=== PATIENT | female | born 1990 | race American Indian/Alaskan Native ===

== ENCOUNTER 2018-03-29 00:38 | Emergency (ER) | payer BC ==
[2018-03-29 01:55] LABS: Basophils # (Auto) 0.1 K/mm3 (0.0-0.1); Basophils % (Auto) 0.8 % (0.0-1.8); Eosinophils # (Auto) 0.1 K/mm3 (0.0-0.4); Eosinophils % (Auto) 0.9 % (0.0-4.3); Hematocrit 40.9 % (30.3-42.9); Hemoglobin 14.1 gm/dl (10.1-14.3); Lymphocytes # (Auto) 1.8 K/mm3 (1.2-5.4); Lymphocytes % (Auto) 23.9 % (13.4-35.0); Mean Corpuscular HGB Conc 34 % (30-34); Mean Corpuscular Hemoglobin 32 pg (28-32); Mean Corpuscular Volume 92 fl (79-97); Monocytes # (Auto) 0.5 K/mm3 (0.0-0.8); Monocytes % (Auto) 6.8 % (0.0-7.3); Platelet Count 414 K/mm3 (140-440); Red Blood Count 4.45 M/mm3 (3.65-5.03); Red Cell Distribution Width 12.7 % (13.2-15.2)
[2018-03-29 01:57] LABS: BUN/Creatinine Ratio 18; Blood Urea Nitrogen 16 mg/dL (7-17); Calcium 9.4 mg/dL (8.4-10.2); Hemolysis Index 6
[2018-03-29 02:20] LABS: Bilirubin,Urine NEG (Negative); Blood,Urine NEG (Negative); Color,Urine Yellow (Yellow); Mucus,Urine FEW /HPF
[2018-03-29 02:30] LABS: Amphetamine Screen,Urine PRESUMPTIVE NEGATIVE; Benzodiazepines Screen,Urine PRESUMPTIVE NEGATIVE; Cannabinoid Screen,Urine PRESUMPTIVE NEGATIVE; Cocaine Screen,Urine PRESUMPTIVE NEGATIVE; Methadone Screen,Urine PRESUMPTIVE NEGATIVE; Opiate Screen,Urine PRESUMPTIVE NEGATIVE
--- NOTE | 2018-03-29 03:46 | Emergency Department Report ---
ED Psych HPI - General Chief Complaint: Psych Stated Complaint: NOT FEELING MENTALLY STABLE Time Seen by Provider: 03/29/18 03:42 Source: patient Mode of arrival: Ambulatory - History of Present Illness Initial Comments: 28-year-old woman with chronic depression, reports significant interpersonal difficulties with her significant other, reporting that he has a history of alcohol abuse, with difficulties over drinking, but otherwise patient has felt that he has been a stabilizing influence, but became significantly upset at not being able to localize patient today, did not know where he was, became significantly distraught, and felt something snap, with significant worsening of her depression, and feeling acutely suicidal. She expresses with cutting behavior, primarily on her left forearm, which should not cause any significant bleeding, but she remained distraught, contacted local police, who brought her here for psychiatric evaluation. She's had no prior history of suicidal activity, but she has felt chronically depressed, although she has not had treatment for this. She still feels unstable, still feels like she is suicidal , does not feel safe if she were released on her own care. Gen. health is good otherwise, she takes no routine medications, has no substance abuse issues of her own, takes no routine medications, and has no acute allergies. - Related Data Home Medications Medication Instructions Recorded Confirmed Last Taken No Known Home Medications [No 03/29/18 03/29/18 Unknown Reported Home Medications] Allergies Allergy/AdvReac Type Severity Reaction Status Date / Time No Known Allergies Allergy Unverified 03/29/18 00:45 ED Review of Systems ROS: Stated complaint: NOT FEELING MENTALLY STABLE Other details as noted in HPI Comment: All other systems reviewed and negative Constitutional: denies: chills, fever Eyes: denies: eye pain, eye discharge, vision change ENT: denies: ear pain, throat pain Respiratory: denies: cough, shortness of breath, wheezing Cardiovascular: denies: chest pain, palpitations Endocrine: no symptoms reported Gastrointestinal: denies: abdominal pain, nausea, diarrhea Genitourinary: denies: urgency, dysuria, discharge Musculoskeletal: denies: back pain, joint swelling, arthralgia Skin: denies: rash, lesions Neurological: denies: headache, weakness, paresthesias Psychiatric: depression, suicidal thoughts. denies: auditory hallucinations, visual hallucinations, homicidal thoughts Hematological/Lymphatic: denies: easy bleeding, easy bruising ED Past Medical Hx - Past Medical History Previous Medical History?: No - Surgical History Past Surgical History?: No - Social History Smoking Status: Never Smoker - Medications Home Medications: Home Medications Medication Instructions Recorded Confirmed Last Taken Type No Known Home Medications [No 03/29/18 03/29/18 Unknown History Reported Home Medications] ED Physical Exam - General Limitations: No Limitations General appearance: alert, in no apparent distress, anxious - Head Head exam: Present: atraumatic, normocephalic - Eye Eye exam: Present: normal appearance, PERRL, EOMI - ENT ENT exam: Present: mucous membranes moist - Neck Neck exam: Present: normal inspection, full ROM. Absent: tenderness - Respiratory Respiratory exam: Present: normal lung sounds bilaterally. Absent: respiratory distress, wheezes, rales, rhonchi - Cardiovascular Cardiovascular Exam: Present: regular rate, normal rhythm. Absent: systolic murmur, diastolic murmur, rubs, gallop - GI/Abdominal GI/Abdominal exam: Present: soft, normal bowel sounds - Rectal Rectal exam: Present: deferred - Extremities Exam Extremities exam: Present: other (minor superficial skin laceration, left forearm, nonpenetrating into dermal area, none require suture) - Back Exam Back exam: Present: normal inspection - Neurological Exam Neurological exam: Present: alert, oriented X3 - Psychiatric Psychiatric exam: Present: normal affect, normal mood - Skin Skin exam: Present: warm, dry, intact, normal color. Absent: rash ED Course Vital Signs 03/29/18 00:47 Temperature 37.3 C Pulse Rate 119 H Respiratory 20 Rate Blood Pressure 114/79 O2 Sat by Pulse 98 Oximetry ED Medical Decision Making - Lab Data Result diagrams: 03/29/18 01:07 03/29/18 01:07 Critical care attestation.: If time is entered above; I have spent that time in minutes in the direct care of this critically ill patient, excluding procedure time. ED Disposition Condition: Stable Referrals: PRIMARY CARE,MD [Primary Care Provider] - 3-5 Days
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
[2018-03-29 14:53] VITALS: BP 123/103
== END 2018-03-29 15:03 ==
LOC: EEVIPCON 00:38 → ED 00:38
DX: F32.9 Major depressive disorder, single episode, unspecified (principal); F10.20 Alcohol dependence, uncomplicated
CPT/HCPCS: 36415; 80048; 80307; 81001; 84703; 85025; 99285; G0480; 80320

== ENCOUNTER 2022-04-12 09:02 | Emergency (ER) | payer BC, OTHER ==
[2022-04-12 09:21] VITALS: BP 114/103
[2022-04-12 10:48] LABS: Basophils # (Auto) 0.1 K/mm3 (0.0-0.1); Basophils % (Auto) 0.9 % (0.0-1.8); Eosinophils # (Auto) 0.1 K/mm3 (0.0-0.4); Hematocrit 44.1 % (30.3-42.9); Hemoglobin 15.3 gm/dl (10.1-14.3); Lymphocytes # (Auto) 1.8 K/mm3 (1.2-5.4); Lymphocytes % (Auto) 27.5 % (13.4-35.0); Mean Corpuscular HGB Conc 35 % (30-34); Mean Corpuscular Volume 93 fl (79-97); Monocytes # (Auto) 0.4 K/mm3 (0.0-0.8); Monocytes % (Auto) 6.7 % (0.0-7.3); Platelet Count 351 K/mm3 (140-440); Red Blood Count 4.76 M/mm3 (3.65-5.03); Red Cell Distribution Width 12.9 % (13.2-15.2)
[2022-04-12 11:06] LABS: Alanine Aminotransferase 72 units/L (7-56); Albumin 4.1 g/dL (3.9-5); Blood Urea Nitrogen 10 mg/dL (7-17); Calcium 9.1 mg/dL (8.4-10.2); Hemolysis Index 9
[2022-04-12 12:31] LABS: BUN/Creatinine Ratio 14; Bilirubin,Direct < 0.2 mg/dL (0-0.2)
[2022-04-12] MEDS ORDERED: SODIUM CHLORIDE 0.9% 1000 ML 1,000 ML IV ONE ×2 (15:51→17:15)
--- NOTE | 2022-04-12 17:16 | Emergency Department Report ---
ED General Adult HPI - General Chief complaint: Abdominal Pain Stated complaint: DEHYDRATION PUI?: No Time Seen by Provider: 04/12/22 14:25 Source: patient Mode of arrival: Ambulatory Limitations: No Limitations - History of Present Illness Initial comments: Patient is a 31-year-old female that comes to the emergency room after several days of binge drinking. She states that she believes she is dehydrated and just weak. She denies any chest pain or shortness of breath. Denies fever or chills. Denies abdominal pain or back pain. She has no nausea and vomiting. Patient states that she given up drinking for about 2 months and then this past weekend she went on a binge she states that this is happened in the past that this is what happens to her. Patient has no HI or SI. No AV hallucinations. Severity scale (0 -10): 8 - Related Data Home Medications Medication Instructions Recorded Confirmed Last Taken No Known Home Medications [No 03/29/18 03/29/18 Unknown Reported Home Medications] Allergies Allergy/AdvReac Type Severity Reaction Status Date / Time No Known Allergies Allergy Unverified 03/29/18 00:45 ED Review of Systems ROS: Stated complaint: DEHYDRATION Other details as noted in HPI Comment: All other systems reviewed and negative ED Past Medical Hx - Past Medical History Previous Medical History?: Yes Additional medical history: Alcohol abuse - Surgical History Past Surgical History?: No - Family History Family history: no significant - Social History Smoking Status: Never Smoker Substance Use Type: Alcohol - Medications Home Medications: Home Medications Medication Instructions Recorded Confirmed Last Taken Type No Known Home Medications [No 03/29/18 03/29/18 Unknown History Reported Home Medications] ED Physical Exam - General Limitations: No Limitations General appearance: alert, in no apparent distress - Head Head exam: Present: atraumatic, normocephalic - Eye Eye exam: Present: normal appearance - ENT ENT exam: Present: mucous membranes moist - Neck Neck exam: Present: normal inspection - Respiratory Respiratory exam: Present: normal lung sounds bilaterally. Absent: respiratory distress - Cardiovascular Cardiovascular Exam: Present: regular rate, normal rhythm. Absent: systolic murmur, diastolic murmur, rubs, gallop - GI/Abdominal GI/Abdominal exam: Present: soft, normal bowel sounds - Extremities Exam Extremities exam: Present: normal inspection - Back Exam Back exam: Present: normal inspection - Neurological Exam Neurological exam: Present: alert, oriented X3 - Psychiatric Psychiatric exam: Present: normal affect, normal mood - Skin Skin exam: Present: warm, dry, intact, normal color. Absent: rash ED Course Vital Signs 04/12/22 09:18 Temperature 98.9 F Pulse Rate 118 H Respiratory 18 Rate Blood Pressure 114/103 [Right] O2 Sat by Pulse 98 Oximetry ED Medical Decision Making - Lab Data Result diagrams: 04/12/22 10:05 04/12/22 10:05 - Medical Decision Making Labs 04/12/22 04/12/22 04/12/22 10:05 10:05 10:05 WBC 6.4 RBC 4.76 Hgb 15.3 H Hct 44.1 H MCV 93 MCH 32 MCHC 35 H RDW 12.9 L Plt Count 351 Lymph % (Auto) 27.5 [place] % (Auto) 6.7 Eos % (Auto) 1.0 Baso % (Auto) 0.9 Lymph # (Auto) 1.8 [place] # (Auto) 0.4 Eos # (Auto) 0.1 Baso # (Auto) 0.1 Seg Neutrophils % 63.9 Seg Neutrophils # 4.1 Sodium 140 Potassium 3.5 L Chloride 100.1 Carbon Dioxide 24 Anion Gap 19 BUN 10 Creatinine 0.7 Estimated GFR > 60 BUN/Creatinine Ratio 14 Glucose 145 H Calcium 9.1 Total Bilirubin 0.70 Direct Bilirubin < 0.2 Indirect Bilirubin 0.5 AST 46 H ALT 72 H Alkaline Phosphatase 88 Total Protein 7.3 Albumin 4.1 Albumin/Globulin Ratio 1.3 Lipase 47 HCG, Quant < 2 Vital Signs 04/12/22 09:18 Temperature 98.9 F Pulse Rate 118 H Respiratory 18 Rate Blood Pressure 114/103 [Right] O2 Sat by Pulse 98 Oximetry 2 L NS IV LABS NOTED PREG NEG On discharge exam patient is sitting up watching TV. She is in no acute distress. Heart rate 80. She is taking p.o. DC HOME WITH DC PLAN OF CARE. Patient verbalizes understanding of discharge plan of care including medications diet, activity and follow-up. We have discussed alcohol cessation. - Differential Diagnosis Hangover Critical care attestation.: If time is entered above; I have spent that time in minutes in the direct care of this critically ill patient, excluding procedure time. ED Disposition Clinical Impression: Alcohol consumption binge drinking Disposition: HOME / SELF CARE / HOMELESS Is pt being admited?: No Does the pt Need Aspirin: No Condition: Stable Instructions: Alcohol Use Disorder, Abdominal Pain (ED) Additional Instructions: AVOID DRUGS/ALCOHOL FOLLOW UP PCP NEEDED REFERRAL BELOW STAY WELL HYDRATED WITH WATER Referrals: DAVID MEDEL MD [Primary Care Provider] - 3-5 Days Forms: Work/School Release Form(ED) Time of Disposition: 17:47
[2022-04-12 17:53] LABS: Mucus,Urine 3+ /HPF; RBC,Urine < 1.0 /HPF (0.0-6.0); WBC,Urine < 1.0 /HPF (0.0-6.0)
[2022-04-12 18:38] LABS: Bilirubin,Urine Negative (Negative); Blood,Urine Negative (Negative); Color,Urine Yellow (Yellow)
== END 2022-04-12 18:18 | disposition home or self-care (01) ==
LOC: ED 09:02
DX: F10.10 Alcohol abuse, uncomplicated (principal)
CPT/HCPCS: 36415; 80048; 80076; 81001; 83690; 84702; 85025; 96360; 99283; J7030